=== PATIENT | female | born 1955 | race Caucasian/White ===

== ENCOUNTER 2016-06-14 15:46 | Emergency (ER) | payer MEDICARE, MEDICAID ==
[2016-06-14 16:35] LABS: BASOPHILS 0.4 % (0.0-2.0); EOSINOPHILS# 0.2 X 10^3uL (0.0-0.4); HEMATOCRIT 40.2 % (36.0-48.0); HEMOGLOBIN 13.7 g/dL (12.0-16.0); LYMPHOCYTES 30.9 % (20.0-40.0); LYMPHOCYTES# 3.7 X 10^3uL (0.8-3.8); MEAN CELL VOLUME 85.5 fL (80.0-100.0); MEAN CORPUSCULAR HEMOGLOBIN 29.1 pg (29.0-35.0); MEAN PLATELET VOLUME 7.2 fL (7.4-10.4); MONOCYTES 4.7 % (2.0-10.0); MONOCYTES# 0.6 X 10^3uL (0.2-1.0); NEUTROPHILS# 7.4 X 10^3uL (2.6-6.7); PLATELET COUNT 400 X 10^3uL (130-440); RED CELL DISTRIBUTION WIDTH 12.4 % (11.5-14.5); WHITE BLOOD COUNT 11.9 X 10^3uL (3.9-10.7)
[2016-06-14] MEDS ORDERED: predniSONE 10 MG TABLET PO ONE (16:37)
[2016-06-14] MEDS ORDERED: IPRATROPIUM/ALBUTEROL 0.5/3 MG 3 ML AMPUL.NEB INHALATION ONE ×2 (16:37→16:57)
--- NOTE | 2016-06-14 16:38 | RADIOLOGY REPORT ---
HISTORY: Cough and congestion. COMPARISON: CT abdomen 02/12/2016. FINDINGS: 1 view of the chest obtained. Normal heart size. Unremarkable central pulmonary vessels. Normal medi astinal contour. Moderate size right-sided pleural effusion with right basilar atelectasis. No left-sided pleural effusion. Clear left lung. No pneumothorax. Poor bony detail. No focal osseous abnormalities identified. IMPRESSION: Moderate size right-sided pleural effusion with compressive right basilar atelectasis. Final Electronic Signature: This report was electronically signed by Jose Raul Randhawa MD, FACR on 4:36 PM. lamar /
[2016-06-14 16:47] LABS: A/G RATIO 1.2; ALBUMIN 4.1 g/dL (3.5-5.0); ALKALINE PHOSPHATASE 113 U/L (38-126); ALT 44 U/L (9-52); AST 40 U/L (14-36); BILIRUBIN, TOTAL 0.5 mg/dL (0.2-1.3); BLOOD UREA NITROGEN 9 mg/dL (7-17); CALCIUM 9.5 mg/dL (8.4-10.2); CHLORIDE 102 mmol/L (98-107); CREATININE 0.8 mg/dL (0.5-1.0); EST GLOMERULAR FILTRATION RATE > 60 mL/min; GLUCOSE 110 mg/dL (70-100); POTASSIUM 3.8 mmol/L (3.5-5.1); SODIUM 138 mmol/L (137-145); TOTAL PROTEIN 7.5 g/dL (6.3-8.2)
[2016-06-14 16:59] LABS: TROPONIN I < 0.012 ng/mL (0.00-0.034)
--- NOTE | 2016-06-14 18:15 | CT REPORT ---
HISTORY: Shortness of breath and elevated d-dimer COMPARISON: 08/18/2012 TECHNIQUE: This examination was performed using automated exposure control, adjustment of mA or kV according to patient size, and/or use of iterative reconstruction technique. Axial CT imaging from the thoracic i nlet through the upper abdomen following administration of IV contrast during peak opacification of t he pulmonary arteries, multiplanar reformatted and 3-D images are evaluated. 100cc Isovue 370 contrast. FINDINGS: There is no acute pulmonary embolism. Central pulmonary arteries are normal in caliber. There is no a ortic aneurysm or dissection the chest. The heart size is normal and there is no pericardial effusion . A left tracheobronchial lymph node measures 14 mm in long axis dimension and 7 mm in short axis dim ension. A large right pleural effusion is present, with mild compressive atelectasis in the right lower lobe consolidation is demonstrated. There is no left pleural effusion. Mild centrilobular emphysema is pre sent. A solid round 5 mm nodule in the right middle lobe is stable. A 5 mm subpleural nodule in the p osterior left lower lobe is also stable. A small left Bochdalek hernia contains fat only. The liver s hows enlargement and diffuse fatty infiltration. The chest wall appears intact. No suspicious bony lesion is demonstrated. There is no thoracic spine fracture. IMPRESSION: 1. No acute pulmonary embolism. 2. New large right pleural effusion and compressive atelectasis in the right lower lobe. No definite underlying active pneumonia. 3. No pathologically enlarged lymph nodes. 4. Stable 5 mm nodules in the right middle lobe and left lower lobe. Given their stability for nearly 3 years, these are benign. 5. Enlarged fatty infiltrated liver. This report was discussed with Dr. Baltazar on 06/14/2016 at 6:05 PM. Final Electronic Signature: This report was electronically signed by Chao Rey MD on 06/14/2016 6:12 PM. indy /
--- NOTE | 2016-06-14 19:41 | ER NURSING DOCUMENTATION ---
Nurse's Notes [facility] Name:Khalida Dao Age:60 yrs Sex:Female :1955 Arrival Date:06/14/2016 Time:15:46 BedTrauma-C Private MD:Leia Cash Diagnosis:Pleural Effusion, Unspecified Presentation: 06/14 16:10 Presenting complaint: Patient states: increasing SOB X 2 weeks. Now using oxygen during lpr day. Returned from a car trip last night. Denies chest pain at this time. Transition of care: patient was not received from another setting of care. 16:10 Acuity: NITHIN 2 lpr 16:10 Method Of Arrival: Wheelchair lpr Triage Assessment: 16:18 General: Appears uncomfortable, Behavior is anxious, cooperative. Pain: Denies pain. lpr EENT: Oral mucosa is moist. Neuro: Level of Consciousness is awake, alert, obeys commands, Oriented to person, place, time, event. Cardiovascular: Rhythm is sinus rhythm Chest pain is denied. Respiratory: Airway is patent Respiratory effort is labored, Respiratory pattern is regular, symmetrical, tachypnea Reports shortness of breath at rest Onset: The symptoms/episode began/occurred 2 weeks, the patient has moderate shortness of breath. GI: No deficits noted. : No deficits noted. Derm: Skin is intact, is healthy with good turgor, Skin is pink, warm & dry. Musculoskeletal: Circulation, motion, and sensation intact Capillary refill < 3 seconds Range of motion intact in all extremities. Historical: - Allergies: No known drug Allergies; - Home Meds: 1. Advair Diskus Inhl 2. spiriva 3. levothyroxine 175 mcg oral tab 1 tab once daily 4. liothyronnine 5. Estradiol Oral 6. Medroxyprogesterone Acetate Oral 7. montelukast oral 8. Nexium Oral 9. Potassium Chloride Oral 10. proair 11. qvar - PMHx: COPD; HYPOTHYROIDISM; GERD; - PSHx: arm; - Tetanus: unknown. - Ebola Screening: : No symptoms or risks identified at this time. . - Immunization history: Pneumococcal vaccine is up to date, Flu Vaccine >1 year. - Social history: Smoking status: Patient states former smoker of tobacco. Screenin:21 Infectious Disease Risk None. Abuse screen: Denies threats or abuse. Nutritional lpr screening: No deficits noted. Assessment: 16:21 Cardiovascular: Rhythm is sinus rhythm Chest pain is denied. Respiratory: Airway is lpr patent Respiratory effort is labored, Respiratory pattern is tachypnea Breath sounds are diminished bilaterally. Vital Signs: 15:53 BP 128 / 79 (auto/); lpr 15:57 Pulse 109 MON; Resp 22; Temp 97.6(O); Pulse Ox 79% ; Weight 110.68 kg (M); Height 5 ft. lpr 4 in. (162.56 cm) (R); Pain 0/10; 16:16 BP 150 / 82 (auto/); lpr 16:17 Pulse 81 MON; Resp 24; Pulse Ox 96% ; lpr 16:30 BP 143 / 70 (auto/); lpr 16:32 Pulse 81 MON; Resp 20; Pulse Ox 94% ; lpr 16:45 BP 150 / 83 (auto/); lpr 16:47 Pulse 85 MON; Resp 25; Pulse Ox 92% ; lpr 17:00 BP 159 / 89 (auto/); lpr 17:02 Pulse 93 MON; Resp 24; Pulse Ox 90% ; lpr 17:15 BP 162 / 75 (auto/); lpr 17:17 Pulse 94 MON; Resp 21; Pulse Ox 90% ; lpr 18:00 BP 126 / 70 (auto/); rs 18:02 Pulse Ox 94% ; rs 18:16 BP 146 / 76 (auto/); rs 18:17 Pulse Ox 92% ; rs 19:07 Pulse Ox 94% ; rs 15:57 Body Mass Index 41.88 (110.68 kg, 162.56 cm) lpr Vitals: 16:37 Peak flow readin liters/min. lpr 17:16 Peak flow readin liters/min. lpr ED Course: 15:50 Patient arrived in ED. lm3 15:50 Leia Cash is Private Physician. lm3 16:00 EKG done. (by ED staff). Reviewed by Jordin Daniel MD. lpr 16:11 Triage completed. lpr 16:13 Inserted saline lock: 18 gauge in left hand and blood collected. by Ben Lui lpr Lead Mason Tender. Oxygen Oxygen administration via nasal cannula upon arrival. 16:16 Jordin Daniel MD is Attending Physician. tl1 16:17 EKG attached lpr 16:21 Valuables Remains with patient Patient has correct armband on for positive lpr identification. Placed in gown. Bed in low position. Call light in reach. Side rails up X2. quality assurance monitor on. Pulse ox on. NIBP on. 16:23 Port Xray Completed. hz 16:57 ED physician of Other physician notified: Dr. Daniel notified of 406 d-dimer. No new lpr orders. 17:20 Report given to Elizabeth Oden RN. lpr 17:36 Inserted saline lock: 18 gauge in right antecubital area. lpr 18:01 Patient moved back from [place]. pm1 19:18 Discontinued lock intact, bleeding controlled, pressure dressing applied, No rs redness/swelling at site. Both IV's were discontinued per pt request. Understands that [facility] will need an IV. Administered Medications: 16:30 Drug: DuoNeb (Albuterol 2.5 mg, Atrovent 0.5 mg); 6 ml; Route: Nebulizer; lpr 17:17 Follow up: Response: no change in Peak Flow. Dr. daniel notified. lpr 16:30 Drug: predniSONE 40 mg; Route: PO; lpr 17:17 Follow up: Response: No adverse reaction lpr Outcome: 19:04 ER care complete, transfer ordered by . tl1 19:26 Transferred: Patient will be transferred to: Other [facility] in [place] by rs POV. 19:26 Condition: stable 19:26 Instructed on need for transfer 19:40 Patient left the ED. rs 19:59 Report given to [facility] room 5117, Nir ROMAN. rs 22:52 Report given to Received a call from the roundhouse supervisor "Zakiya" at [facility] who rs reports that this patient has called their facility several times asking to have her pleural effusion drained tomorrow and does not want to be admitted tonight. The roundhouse supervisor was going to call her and discuss the situation. Signatures: Elizabeth Oden RN RN rs May Jackson RN RN lpr Sav Pool pm1 Jordin Daniel MD MD tl1 Sania Chavez Ros Gill 3
--- NOTE | 2016-06-14 19:41 | ER PHYSICIAN DOCUMENTATION ---
Physician Documentation [facility] Name:Khalida Dao Age:60 yrs Sex:Female :1955 Arrival Date:06/14/2016 Time:15:46 BedTrauma-C Private MD:Leia Cash ED, Tom Disposition: 06/14 18:38 Critical Care: not applicable. tl1 18:52 Chart complete. tl1 Disposition: 06/14/16 19:04 Transfer ordered to Other Acute Care Facility. Diagnosis is Pleural Effusion, Unspecified. - Reason for transfer: Specialty. - Accepting physician is Joni. - Condition is Fair. - Problem is new. - Symptoms are unchanged. COBRA Form completed? Yes Transfer - Mode of Transportation Private Vehicle - Notes: GO DIRECTLY TO [facility] IN [place] TO BE DIRECTLY ADMITTED TO THE HOSPITALIST SERVICE, FOR FURTHER EVALUATION AND CARE. HPI: 16:10 This 60 yrs old Female presents to ER via Wheelchair with complaints of tl1 Shortness Of Breath. 16:10 The patient has shortness of breath with light activity. Onset: The symptom(s)/episode tl1 began/occurred gradually. Onset: The symptom(s)/episode began/occurred 2 week(s) ago. Duration: The symptoms are continuous. 17:57 She has a h/o COPD with spirometry done in the [facility] office in 07/08 showing and FEV1 of tl1 1.74 L (64% pred), FVC of 2.73 L ( 79% pred) and and FEV1/FVC ratio of 63%. For the last 2 weeks she has had increasing O2 dependence at home. She has not been using her MDIs more than usual b/c she does not like the way they make her feel. She has a little bit of a dry dry cough and has a sharp right more than left posterolateral lower chest pain that is worse when supine. No f/c/s or hemoptysis. . Historical: - Allergies: No known drug Allergies; - Home Meds: 1. Advair Diskus Inhl 2. spiriva 3. levothyroxine 175 mcg oral tab 1 tab once daily 4. liothyronnine 5. Estradiol Oral 6. Medroxyprogesterone Acetate Oral 7. montelukast oral 8. Nexium Oral 9. Potassium Chloride Oral 10. proair 11. qvar - PMHx: COPD; HYPOTHYROIDISM; GERD; - PSHx: arm; - Tetanus: unknown. - Ebola Screening: : No symptoms or risks identified at this time. . - Immunization history: Pneumococcal vaccine is up to date, Flu Vaccine >1 year. - Social history: Smoking status: Patient states former smoker of tobacco. ROS: 18:19 Respiratory: Positive for orthopnea, shortness of breath, wheezing. tl1 Exam: 18:23 Constitutional: This is a well developed, well nourished patient who is awake, alert, tl1 and in no acute distress. Head/Face: Normocephalic, atraumatic. Eyes: Pupils equal round and reactive to light, extra-ocular motions intact. Lids and lashes normal. Conjunctiva and sclera are non-icteric and not injected. Cornea within normal limits. Periorbital areas with no swelling, redness, or edema. ENT: Nares patent. No nasal discharge, no septal abnormalities noted. Tympanic membranes are normal and external auditory canals are clear. Oropharynx with no redness, swelling, or masses, exudates, or evidence of obstruction, uvula midline. Mucous membranes moist. Neck: Trachea midline, no thyromegaly or masses palpated, and no cervical lymphadenopathy. Supple, full range of motion without nuchal rigidity, or vertebral point tenderness. No Meningismus. 18:23 Chest/axilla: Normal chest wall appearance and motion. Nontender with no deformity. tl1 No lesions are appreciated. 18:23 Chest/axilla: Palpation: 18:23 Cardiovascular: Rate: normal, Rhythm: regular, Heart sounds: normal, Edema: is not appreciated, JVD: is not appreciated. 18:23 Respiratory: mild respiratory distress is noted, Respirations: labored breathing, Breath sounds: decreased breath sounds, are heard in the left posterior upper lobe, right posterior upper lobe, left posterior lower lobe, right posterior middle lobe and right posterior lower lobe. 18:23 Abdomen/GI: Inspection: abdomen appears normal, Palpation: abdomen is soft and non-tender. 18:23 Musculoskeletal/extremity: Extremities: all appear grossly normal, with no appreciated pain with palpation. 18:23 Skin: Exam negative for acute changes. 18:23 Neuro: Exam negative for acute changes. Vital Signs: 15:53 BP 128 / 79 (auto/); lpr 15:57 Pulse 109 MON; Resp 22; Temp 97.6(O); Pulse Ox 79% ; Weight 110.68 kg (M); Height 5 ft. lpr 4 in. (162.56 cm) (R); Pain 0/10; 16:16 BP 150 / 82 (auto/); lpr 16:17 Pulse 81 MON; Resp 24; Pulse Ox 96% ; lpr 16:30 BP 143 / 70 (auto/); lpr 16:32 Pulse 81 MON; Resp 20; Pulse Ox 94% ; lpr 16:45 BP 150 / 83 (auto/); lpr 16:47 Pulse 85 MON; Resp 25; Pulse Ox 92% ; lpr 17:00 BP 159 / 89 (auto/); lpr 17:02 Pulse 93 MON; Resp 24; Pulse Ox 90% ; lpr 17:15 BP 162 / 75 (auto/); lpr 17:17 Pulse 94 MON; Resp 21; Pulse Ox 90% ; lpr 18:00 BP 126 / 70 (auto/); rs 18:02 Pulse Ox 94% ; rs 18:16 BP 146 / 76 (auto/); rs 18:17 Pulse Ox 92% ; rs 19:07 Pulse Ox 94% ; rs 15:57 Body Mass Index 41.88 (110.68 kg, 162.56 cm) lpr MDM: 16:00 Differential diagnosis: Anxiety Reaction asthma, Bronchitis CHF exacerbation, Chronic tl1 Obstructive Pulmonary Disease Myocardial Infarction pneumonia, Pneumothorax Psychogenic pulmonary edema, Pulmonary Embolism reactive airway disease, Unstable Angina. Antibiotic administration:. The patient's [place] Deep Vein Thrombosis Score was calculated as follows: Total Score: 0-2 Pts- Low Risk. Data reviewed: vital signs, nurses notes, lab test result(s), EKG, radiologic studies, and as a result, I will discharge patient. Data interpreted: maintenance repairer: Pulse oximetry:. 16:16 Patient medically screened. tl1 16:17 EKG attached lpr 16:22 Counseling: I had a detailed discussion with the patient and/or guardian regarding: the tl1 historical points, exam findings, and any diagnostic results supporting the discharge/admit diagnosis, lab results, radiology results, the need for outpatient follow up. ECG:. 18:28 Special discussion:. ED course: Stable. No apparent objective or subjective improvement tl1 in respiratory status after a double strength duoneb. She initially did not want to be admitted to the hospital, but finally relented after declining an ambulance but did say she would allow herself to be driven down by her SO.. 18:53 Physician consultation: Ashwin Quinones was called at 18:30, was contacted at 18:30, tl1 regarding patient's condition, need to evaluate the patient as soon as possible. 06/14 16:38 Order name: CBC AUTO DIF, MDIF/RMOR IF IND; Complete Time: 17:17 EDWA 06/14 17:13 Interpretation: WHITE BLOOD COUNT 11.9; HEMOGLOBIN 13.7; HEMATOCRIT 40.2; PLATELET tl1 COUNT 400; NEUTROPHILS 62.0; LYMPHOCYTES 30.9; MONOCYTES 4.7. 06/14 16:57 Order name: DDIMER; Complete Time: 17:17 EDMS 06/14 17:17 Interpretation: Abnormal: DDIMER 406. tl1 06/14 17:00 Order name: COMPREHENSIVE METABOLIC PANEL; Complete Time: 17:17 EDMS 06/14 17:17 Interpretation: Normal. tl1 06/14 17:00 Order name: BNP,NT-PRO; Complete Time: 17:17 EDMS 06/14 17:17 Interpretation: Normal: BNP,NT-PRO 53. tl1 06/14 17:00 Order name: TROPONIN I; Complete Time: 17:17 EDWA 06/14 17:17 Interpretation: Normal: TROPONIN I < 0.012. tl1 06/14 16:26 Order name: CHEST SINGLE VIEW [id number]; Complete Time: 17:17 EDMS 06/14 16:39 Order name: CHEST; SINGLE VIEW [id number]; Complete Time: 17:17 EDWA 06/14 17:17 Interpretation: Abnormal: right pleural effusion. tl1 06/14 17:59 Order name: CAT SCAN CHEST ANGIO [id number]; Complete Time: 18:49 EDMS 06/14 18:16 Order name: CAT SCAN; CHEST ANGIO [id number]; Complete Time: 18:49 EDWA 06/14 16:22 Order name: EKG - 12 Lead; Complete Time: 16:37 tl1 EC:00 Rate is 88 beats/min. Rhythm is regular. QRS [place] is Normal. TN interval is normal at tl1 154 msec. QRS interval is normal at 84 msec. QT interval is normal at 347 msec. No Q waves. T waves are Normal. No ST changes noted. Clinical impression: Normal ECG. Interpreted by me. Reviewed by me. Dispensed Medications: 16:30 Drug: DuoNeb (Albuterol 2.5 mg, Atrovent 0.5 mg); 6 ml; Route: Nebulizer; lpr 17:17 Follow up: Response: no change in Peak Flow. Dr. daniel notified. lpr 16:30 Drug: predniSONE 40 mg; Route: PO; lpr 17:17 Follow up: Response: No adverse reaction lpr Signatures: Elizabeth Oden RN RN rs May Jackson RN RN lpr Jordin Daniel MD MD tl1
== END 2016-06-14 19:40 | disposition short-term general hospital (02) ==
LOC: ER 15:46
DX: J90 Pleural effusion, not elsewhere classified (principal); R06.02 Shortness of breath; R06.01 Orthopnea; R79.1 Abnormal coagulation profile; J44.9 Chronic obstructive pulmonary disease, unspecified; Z79.899 Other long term (current) drug therapy; Z99.81 Dependence on supplemental oxygen
CPT/HCPCS: 71010; 71275; 80053; 83880; 84484; 85025; 85379; 93005; 94640; 99285; J7512; J7620